=== PATIENT | male | born 1955 | race Caucasian/White ===

== ENCOUNTER → 2023-11-27 06:29 | Day surgery (SDC) | payer MEDICARE, SELFPAY | LOC: GI 06:29 | PROVIDERS: ATTENDING PHYSICIAN Specialist | DX: Z12.11 Encounter for screening for malignant neoplasm of colon (principal); K57.30 Diverticulosis of large intestine without perforation or abscess without bleeding; K64.4 Residual hemorrhoidal skin tags; D12.3 Benign neoplasm of transverse colon; D12.5 Benign neoplasm of sigmoid colon; K62.1 Rectal polyp; K63.5 Polyp of colon | CPT/HCPCS: 45385; 45380; 88305 ==

== ENCOUNTER → 2024-01-09 10:08 | Outpatient (REF) | payer MEDICARE, SELFPAY ==
[2024-01-09 12:29] LABS: Albumin 4.5 g/dl (3.5-5.0); Blood Urea Nitrogen 16 mg/dl (9-20); Calcium 9.8 mg/dl (8.4-10.2); Carbon Dioxide 27 mmol/L (22-30); Chloride 101 mmol/L (98-107); Glucose 101 mg/dl (70-99); Phosphorus 3.1 mg/dl (2.5-4.5); Potassium 4.1 mmol/L (3.5-5.1); Sodium 137 mmol/L (135-145); eGFR > 60.00
== END ==
LOC: HWLAB 10:08
PROVIDERS: ATTENDING PHYSICIAN Internal Medicine Cardiovascular Disease; FAMILY PHYSICIAN Family Medicine
DX: I77.811 Abdominal aortic ectasia (principal)
CPT/HCPCS: 36415; 80069

== ENCOUNTER → 2024-01-14 14:42 | Outpatient (REF) | payer MEDICARE, SELFPAY | LOC: HWRAD 14:42 | PROVIDERS: ATTENDING PHYSICIAN Internal Medicine Cardiovascular Disease; FAMILY PHYSICIAN Family Medicine | DX: I77.811 Abdominal aortic ectasia (principal) | CPT/HCPCS: 74175; Q9967 ==

== ENCOUNTER → 2025-01-27 12:03 | Outpatient (REF) | payer MEDICARE, SELFPAY | LOC: RCS 12:03 | PROVIDERS: ATTENDING PHYSICIAN Internal Medicine Cardiovascular Disease; FAMILY PHYSICIAN Family Medicine | DX: R00.1 Bradycardia, unspecified (principal) | CPT/HCPCS: 93005; 93225; 93226 ==

== ENCOUNTER 2025-01-28 14:43 | Emergency (ER) | payer MEDICARE, SELFPAY ==
[2025-01-28 14:49] VITALS: BP 215/85
[2025-01-28 15:09] VITALS: BMI 33.7
[2025-01-28 15:09] LABS: Hematocrit 36.8 % (39.0-52.0); Hemoglobin 12.9 g/dL (13.0-18.0); Mean Corp Hgb Conc. 35.1 g/dL (33.0-37.0); Mean Corpuscular Volume 90.4 fL (80.0-94.0); Nucleated Red Blood Cells % 0 % (-); Platelet Count 219 10^3/uL (130-400); Red Cell Dist. Width 13.4 % (11.5-14.5)
[2025-01-28 15:12] VITALS: BP 185/75
[2025-01-28 15:34] LABS: ALT (SGPT) 22 U/L (0-50); AST (SGOT) 18 U/L (17-59); Albumin 4.5 g/dl (3.5-5.0); Alkaline Phosphatase 52 U/L (38-126); Blood Urea Nitrogen 16 mg/dl (9-20); Calcium 9.3 mg/dl (8.4-10.2); Carbon Dioxide 26 mmol/L (22-30); Chloride 107 mmol/L (98-107); Estimated Creatinine Clearance 79 ml/min; Glucose 95 mg/dl (70-99); Magnesium 1.9 mg/dl (1.6-2.3); Potassium 4.2 mmol/L (3.5-5.1); Sodium 139 mmol/L (135-145); Total Protein 7.0 g/dl (6.3-8.2); eGFR > 60.00
[2025-01-28 16:09] LABS: Troponin I 0.013 ng/ml
--- NOTE | 2025-01-28 16:24 | ED.GENMED ---
History of Present Illness
General
Chief Complaint: Heart Rate Problem
Time Seen by Provider: 01/28/25 15:10
History of Present Illness
History of Present Illness:
69-year-old male presents the emergency department for evaluation of dizziness. He also notes that he turned in a Holter monitor today and was noted to have an EKG and a cardiac office showing bradycardia and thus was encouraged to come to the ED.
He denies chest pain but does have some exertional dyspnea. Feels as though he cannot exert himself as he normally would. Notes that his blood pressure medication was changed earlier this month from lisinopril/HCTZ to lisinopril alone he feels his
blood pressure has been persistently elevated since that time.
Review of Systems
Review of Systems
Allergies reviewed?: Yes
All Other Systems: ROS reviewed and negative except as documented in HPI and ROS
Phy Exam
Physical Exam
Physical Exam:
GEN: Well appearing, NAD, WDWN
HEENT: Oral mucosa moist, no scleral icterus
Cardiac: Bradycardic, no murmur
Lung: No respiratory distress, no tachypnea, lungs clear to auscultation
MSK: No gross deformity or injuries
Skin: Good color, no pallor or jaundice, no rashes
Neuro: AO x3, moves all extremities freely
Psych: Calm, cooperative
Course
Orders/Labs/Results
Orders:
Orders
01/28/25 14:44
ECG [Electrocardiogram (*1)] Urgent
Reason for Study: Abnormal EKG
01/28/25 14:45
EKG- Treatment ONCE
01/28/25 15:00
Complete Blood Count/With Diff Urgent
Comprehensive Metabolic Panel Urgent
Magnesium Urgent
01/28/25 15:24
Troponin I Urgent
Abnormal Lab Results
01/28/25
15:00
RBC 4.07 L 10^6/uL
(4.70-6.10)
Hgb 12.9 L g/dL
(13.0-18.0)
Hct 36.8 L %
(39.0-52.0)
MCH 31.7 H pg
(27.0-31.0)
01/28/25 15:00
01/28/25 15:00
Vital Signs
Initial and Last Documented VS:
Initial Vital Signs
Temp Pulse Resp BP Pulse Ox
98.0 F 46 20 215/85 96
01/28/25 14:49 01/28/25 14:49 01/28/25 14:49 01/28/25 14:49 01/28/25 14:49
Last Documented Vital Signs
Temp Pulse Resp BP Pulse Ox
98.0 F 37 20 185/75 94
01/28/25 14:49 01/28/25 15:45 01/28/25 15:45 01/28/25 15:12 01/28/25 15:45
MDM/Problems Addressed
MDM/Problems Addressed:
I discussed with cardiology regarding his Holter monitor, this showed no evidence for heart block or excessive bradycardia. I suspect his dizziness is more driven by his persistent hypertension that it is the mild bradycardia. No need for urgent
pacemaker. Will restart his original BP meds at discharge home
Comment
Comment:
EKG independently interpreted by me shows a sinus bradycardia with no concerning ST changes. Telemetry monitoring shows sinus bradycardia with no evidence for sinus pause or heart block
*Pulse Oximetry
SaO2: 94
Oxygen Mode of Delivery: Room air
Patient hypoxic: no
*Critical Care Note
Total Time (30-74mins, 75-104mins- exclusive of procedures): Not Applicable
ED Attending Note
-
Portions of this chart may have been created with voice recognition software.� Occasional wrong word or��sound alike� substitutions may have occurred due to the inherent limitations of voice recognition software.
Discharge Plan
Departure
Patient Disposition: Home (Routine Discharge)
Date of Disposition: 01/28/25
Time of Disposition: 16:26
Patient with high blood pressure during this ER visit?: No
Discharge Problem:
Dizziness
Instructions: BLOOD PRESSURE
Prescriptions:
New
lisinopril-hydrochlorothiazide 20-12.5 mg tablet
1 tab PO DAILY Qty: 30 0RF
Referrals:
Bernard Thacker MD [Family Provider, Family Practice]
Interventions
Interventions:
*Risk Screen - Suicide Last Done: 01/28/25 14:49
*General Assessment Last Done: 01/28/25 14:49
*ED- Fall Risk Assessment Last Done: 01/28/25 15:09
*ED COVID-19 Vaccine History Last Done: 01/28/25 15:09
ED- Cardiac Assessment Last Done: 01/28/25 15:09
ED- Pulmonary Assessment Last Done: 01/28/25 15:09
Discharge Date and Time
Print Language: [place]
== END 2025-01-28 16:40 | disposition home or self-care (01) ==
LOC: EMR 14:43
PROVIDERS: Physician Assistant; EMERGENCY PHYSICIAN Emergency Medicine; FAMILY PHYSICIAN Family Medicine
DX: R42 Dizziness and giddiness (principal)
CPT/HCPCS: 99283; 80053; 83735; 84484; 85025; 93005

== ENCOUNTER → 2025-02-09 07:08 | Outpatient (REF) | payer MEDICARE, SELFPAY | LOC: RCS 07:08 | PROVIDERS: ATTENDING PHYSICIAN Internal Medicine Cardiovascular Disease; FAMILY PHYSICIAN Family Medicine | DX: I10 Essential (primary) hypertension (principal); E78.2 Mixed hyperlipidemia; R00.2 Palpitations; R00.1 Bradycardia, unspecified; R07.89 Other chest pain | CPT/HCPCS: 93017 ==